=== PATIENT | female | born 1955 | race Caucasian/White ===

== ENCOUNTER 2016-03-28 10:51 | Emergency (ER) | payer MEDICAID ==
[2015-09-27 09:02] VITALS: BMI 35.2
[~2016-03-28 10:51] MED LIST: ADVAIR 250/501 DISK INH; CARAFATE1 G/10 ML PO; CHANTIX 1 MG TAB1 MG PO; COMBIVENT RESPIM4 GM INH; ESGIC TABLET1 TAB PO; ESTRACE2 MG PO; ESTROGEN OR; HYDROCODONE-APA1 TAB PO; IPRAT-ALBUT 0.5-3 ML UPD; ISOSORBIDE MONO60 M1 PO; LISINOPRIL10 MG PO; LOPRESSOR25 MG; NEURONTIN OR; NEURONTIN600 MG PO; NITRO-DUR0.3 MG TRANSDERM; NITRO-DUR0.4 MG TRANSDERM; NITROSTAT0.4 MG SL; NORCO 10/325 TA1 TA1; PAXIL30 MG; PEPCID20 MG PO; PHENERGAN25 M1 PO; PLAVIX75 MG PO; PROTONIX40 MG PO; PROZAC20 MG OR; RANEXA1000 MG PO; SOMA350 MG PO; WELLBUTRIN75 MG PO; XANAX1 MG PO; ZANTAC150 MG OR; ZOFRAN8 MG PO
[2016-03-28 11:16] LABS: BASOPHILS 0.3 % (0.0-2.0); EOSINOPHILS 0.4 % (0-7); HEMATOCRIT 42.9 % (36.0-48.0); HEMOGLOBIN 13.1 g/dL (12-16); IMMATURE GRANULOCYTES 0.4 % (0-5); LYMPHOCYTES 12.2 % (15-50); MCH 29.1 pg (26.0-34.0); MCHC 30.5 g/dL (31.0-37.0); MCV 95.3 fL (80.0-100.0); MEAN PLATELET VOLUME 9.8 fL (7.4-10.4); MONOCYTES 7.2 % (2-11); NEUTROPHILS 79.5 % (40-80); PLATELET COUNT 192 10x3/uL (130-400); RDW 14.8 % (11.5-14.5)
[2016-03-28 11:20] LABS: APPEARANCE CLOUDY (CLEAR); COLOR ORANGE (YELLOW)
[2016-03-28 11:25] LABS: BACTERIA MODERATE /hpf (NONE SEEN); BILIRUBIN NEGATIVE (NEGATIVE); GLUCOSE NEGATIVE (NEGATIVE); KETONE NEGATIVE (NEGATIVE); LEUKOCYTE ESTERASE TRACE (NEGATIVE); MUCUS <1+ /lpf (NONE SEEN); NITRITE POSITIVE (NEGATIVE); PROTEIN NEGATIVE (NEGATIVE); RED CELLS - URINE 0-5 /hpf (0-5); UROBILINOGEN NORMAL (NORMAL)
[2016-03-28 11:33] LABS: ALBUMIN 3.6 g/dL (3.4-5.0); ALKALINE PHOSPHATASE 73 U/L (46-116); ALT (SGPT) 37 U/L (10-68); BILIRUBIN - TOTAL 0.32 mg/dL (0.2-1.3); CALC OSMOLALITY 276 mosm/kg (275-300); CALCIUM 8.9 mg/dL (8.5-10.1); CARBON DIOXIDE 36.1 mmol/L (21.0-32.0); CHLORIDE - SERUM 98 mmol/L (98-107); CREATININE - SERUM 0.8 mg/dL (0.6-1.3); GLUCOSE 104 mg/dL (74-106); POTASSIUM - SERUM 5.1 mmol/L (3.5-5.1); PROTEIN - SERUM 6.9 g/dL (6.4-8.2); SODIUM 138 mmol/L (136-145); UREA NITROGEN 15 mg/dL (7-18); eGFR NON AFRICAN AMERICAN 77 mL/min (90-120)
== END 2016-03-28 13:30 | disposition home or self-care (01) ==
LOC: D.ER 10:51
PROVIDERS: Family Medicine
DX: N39.0 Urinary tract infection, site not specified (principal); J44.9 Chronic obstructive pulmonary disease, unspecified; F32.9 Major depressive disorder, single episode, unspecified; K21.9 Gastro-esophageal reflux disease without esophagitis; I10 Essential (primary) hypertension